=== PATIENT | female | born 1965 | race Caucasian/White ===

== ENCOUNTER 2024-08-20 11:17 | Outpatient (AMB) | payer SELFPAY ==
--- NOTE | 2024-08-20 11:27 | MHC.PC.OV ---
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 Accompanied by: Self / Same As Patient Allergies antidepressant Allergy (Mild, Uncoded 08/20/24 12:11) muscle regenity Medication List - Last Reconciled 08/20/24 by Kayleigh Tee PA-C cholecalciferol (vitamin D3) 25 mcg PO DAILY gabapentin mg PO levothyroxine 112 mcg PO DAILY lorazepam 1 mg PO BID zolpidem 5 mg PO BEDTIME Tobacco use date assessed: 08/20/24 Dental Screening Dental Screen Date: 08/20/24 Did you have a dental visit in the last 12 months?: Yes Did you have a dental problem in the last 6 months where you did not have access to dental care?: No Was dental information given to patient?: Patient has dentist HPI follow up HPI Details The patient is a 58-year-old female presenting for a follow-up visit and continuation of care after her previous physician?s mcc. 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 Post-surgical complications also include anxiety and heart rate irregularities due to probable cranial nerve impact. 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 She continues maintenance for hypothyroidism and anxiety. Last MRI showed some regrowth of the tumor, and she follows yearly screenings for other health aspects. Social History - Employment/Functional Status: Previously busy work schedule, now on disability. - Clinic Visits: Attends annual and as-needed medical appointments due to ongoing conditions. - Pharmacy: Uses a pharmacy in [place], more recently, the patient mentioned [facility]. - Nutrition and Weight: Engages in a nutrition plan resulting in significant weight loss from approximately 240 lbs to 173 lbs since surgery. The BMI reported was previously at 31. [facility] Medical History (Updated 08/20/24 @ 13:22 by Kayleigh Tee PA-C) Overweight with body mass index (BMI) of 28 to 28.9 in adult Pure hypercholesterolemia, unspecified Encounter for colorectal cancer screening using Cologuard test History of mammogram (~11/10/19) Varicose vein of leg Anxiety Vestibular schwannoma Fibromyalgia Eaton syndrome Tachyarrhythmia Sjogren syndrome Hypothyroidism Bishop's thyroiditis Gastritis Establishing care with new doctor, encounter for Juvenile rheumatoid arthritis Surgical History H/O wisdom tooth extraction Hx of tonsillectomy Family History Father Leukemia BP (high blood pressure) Mother Lung cancer BP (high blood pressure) Glaucoma Social History Housing: Apartment Alcohol intake: current Alcohol intake frequency: does not drink Patient Tobacco Use Status: Never used Tobacco service: No Current occupational status: disabled Cognitive needs: No Hearing needs: No Vision needs: Yes (rx glasses) Questionnaire PHQ-9 Over the last 2 weeks, how often have you been bothered by any of the following problems? 1. Little interest or pleasure in doing things: not at all 2. Feeling down, depressed, or hopeless: not at all 3. Trouble falling or staying asleep, or sleeping too much: not at all 4. Feeling tired or having little energy: not at all 5. Poor appetite or overeating: not at all 6. Feeling bad about yourself - or that you are a failure or have let yourself or your family down: not at all 7. Trouble concentrating on things, such as reading the newspaper or watching television: not at all 8. Moving or speaking so slowly that other people could have noticed. Or the opposite - being so fidgety or restless that you have been moving around a lot more than usual: not at all 9. Thoughts that you would be better off or of hurting yourself in some way: not at all Total score: 0 Depression Screening Interpretation: Negative Depression Screening Done: Yes 35943 - PHQ-9 Billing: Yes Source: Developed by Drs. Jaret Samayoa, Layla BojorquezSebastián and colleagues, with an educational montez from [employer]. Thrive Questionnaire Date Thrive assessed: 08/20/24 I am a: Patient What is your living situation today?: I have a steady place to live Within the past 12 months, did the food you bought not last and you didn't have the money to get more?: Never true Within the past 12 months, did you worry whether your food would run out before you got money to buy more?: Never true Do you have trouble paying for medicines?: No Do you have trouble getting transportation to medical appointments?: No Do you have trouble paying your heating and electricity bill?: No Do you have trouble taking care of your child, family member or friend?: No Do you have trouble with day-to-day activities such as bathing, preparing meals, shopping, managing finances, etc.?: No Are you currently unemployed and looking for a job?: No Are you interested in more education?: No Please select the resources that you would like help with: None THRIVE Score: 0 AUDIT C Alcohol Use Questionnaire (AUDIT-C) 1. How often do you have a drink containing alcohol?: Never 3. How often do you have six or more drinks on one occasion?: Never Total Score: 0 Score Reviewed/Action Taken: No BUBBA-7 AMB Questionnaire BUBBA-7 Date BUBBA - 7 assessed: 08/20/24 Feeling nervous, anxious, or on edge: 0 = Not at all Not being able to stop or control worryin = Not at all Worrying too much about different things: 0 = Not at all Trouble relaxin = Not at all Being so restless that it is hard to sit still: 0 = Not at all Becoming easily annoyed or irritable: 0 = Not at all Feeling afraid as if something awful might happen: 0 = Not at all Total BUBBA-7 score (0-4 normal; 5-9 mild; 10-14 moderate; 15-21 severe): 0 Source: Developed by Drs. Jaret Samayoa, Layla Bojorquez, Sebastián Figueroa and colleagues, with an educational montez from [employer]. BUBBA-7 Assessment Billing BUBBA-7 Assessment Tool: BUBBA-7 Assessment 32919 Review of Systems Const Details: - ENT: Reports single-sided deafness, imbalance, constant tinnitus 23/10, previous ear pressure. - Cardiovascular: Reports anxiety, tachycardia; denies chest pain, leg swelling. - Gastrointestinal: Reports diarrhea; denies vomiting, bloody stool. - Musculoskeletal: Denies acute pain or swelling. - Neurological: Reports difficulty with speech and executive functions, nystagmus, sudden head buzzes, head pressure. - Psychological: Reports anxiety, mostly nocturnal. - General: Reports feeling warm lately but denies fever, cough, or congestion. Physical exam (Primary Care) Vital Signs: Last Vital Signs Temp 97.8 F 08/20/24 11:46 Pulse 86 08/20/24 11:46 Resp 14 08/20/24 11:46 BP 142/79 H 08/20/24 11:46 Pulse Ox 99 08/20/24 11:46 Oxygen Delivery Method Room Air 08/20/24 11:46 Care Plan Goal for BP management: <140/90 at Goal BMI result Body Mass Index 28.8 BMI Assessment/Plan discussion: High BMI High, discussed plan: lifestyle, weight reduction, dietary, physical activity and alcohol moderation Tobacco/Smoking Status: Tobacco use Status Tobacco use date assessed 08/20/24 08/20/24 11:30 Patient Tobacco Use Status Never used Tobacco 08/20/24 11:30 PHQ-9: PHQ-9 Score PHQ-9: Total score 0 08/20/24 12:13 Depression Screening Interpretation: Negative Thrive Assessment: Date of Thrive Assessment Date Thrive assessed 08/20/24 08/20/24 11:30 Const Other: Appearance: Alert. Oriented X3. No acute distress. Head: Normal external exam. Normocephalic. Atraumatic. Eyes: Pupils are equal, round, and reactive to light. Extraocular movements intact. Conjunctiva and sclera normal. Eyelids normal. Ears: External auditory canal normal. Tympanic membranes normal on the right side. Left inner ear removed during surgery, resulting in single-sided deafness. Throat: Pharynx normal. Uvula midline. Moist mucous membranes. Neck: Normal inspection. Neck supple. Full range of motion. No adenopathy. Thyroid Normal. No meningeal signs. No neck mass noted. Cardiovascular: Normal heart rate and rhythm. Heart sound normal. No murmurs noted. Pulses normal throughout. Respiratory: No respiratory distress. Painless inspiration. Breath sounds normal. No wheezes/rales/rhonchi noted. Chest nontender. No accessory muscle usage noted or decreased air movement noted. Abdomen: Soft and nontender. Bowel sounds normal in all 4 quadrants. No distention noted. No organomegaly noted. No visible injury noted. Back: No costovertebral angle tenderness. Full range of motion noted. Skin: Skin warm and dry. Normal skin color. Normal skin turgor. No rashes/lesions/lacerations noted. Extremities: No lower extremity edema. Extremities exhibit normal range of motion. Extremities nontender. Neuro: Oriented X 3. No motor deficit. No sensory deficit. Reflexes normal. Noted imbalance and nystagmus. Results Reviewed Results Reviewed: - Tests and Diagnostics: MRI in August showed slight tumor regrowth. - Labs: Recent blood work from [place] includes thyroid panel, CBC, CMP, A1c at 5.3, all unremarkable per patient report. 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 Varicose vein of leg I83.90 Pure hypercholesterolemia, unspecified E78.00 Overweight with body mass index (BMI) of 28 to 28.9 in adult E66.3; Z68.28 Additional Codes BUBBA-7 Assessment Billing - BUBBA-7 Assessment Tool: BUBBA-7 Assessment 28693 ([id number]) PHQ-9 - 48058 - PHQ-9 Billing: Yes ([id number]) Assessment & Plan Assessment & Plan (1) Establishing care with new doctor, encounter for: Code(s): Z76.89 - Persons encountering health services in other specified circumstances Category: Medical (2) Juvenile rheumatoid arthritis: Code(s): M08.00 - Unspecified juvenile rheumatoid arthritis of unspecified site Category: Medical Plan: Maintain current therapeutic strategies aimed at disease control with regular rheumatology consultations to reassess medication efficacy and joint health. Consider physiotherapy or additional interventions should joint symptoms exacerbate. Condition is chronic and stable continue to monitor. (3) Bishop's thyroiditis: Code(s): E06.3 - Autoimmune thyroiditis Category: Medical Plan: Continued management with levothyroxine dosage maintained as per thyroid function tests. Evaluate at regular intervals with TSH, T3, and T4 assessments to ensure controlled thyroid status. Condition is chronic and stable will continue to monitor. (4) Tachyarrhythmia: Code(s): R00.0 - Tachycardia, unspecified Category: Medical Plan: Addressing through behavioral and pharmacological management in coordination with anxiety treatment. Monitor cardiovascular status, potentially requiring venereal disease investigator consultation should symptoms progress. Condition is chronic and stable continue to monitor. (5) Sjogren syndrome: Code(s): M35.00 - Sjogren syndrome, unspecified Category: Medical Plan: Condition is chronic and stable continue to monitor. (6) Hypothyroidism: Code(s): E03.9 - Hypothyroidism, unspecified Category: Medical Plan: Continued management with levothyroxine dosage maintained as per thyroid function tests. Evaluate at regular intervals with TSH, T3, and T4 assessments to ensure controlled thyroid status. Condition is chronic and stable will continue to monitor. (7) Vestibular schwannoma: Comment: Left side is status post resection in 2020 with residual permanent symptoms from surgery and tumor damage over the years which include single sided deafness left inner ear removed during surgery Imbalance Constant strong tinnitus 24/ Anxiety Bee hives sensation Hyperacusis Getting out thoughts to speech Executive thinking Nystagmus Swallowing issues Sudden pauses Head pressure/left ear pressure Driving can make symptoms worse Code(s): D33.3 - Benign neoplasm of cranial nerves Category: Medical Plan: Ongoing surveillance via annual MRI; last imaging in September 2023 showed slight regrowth. Continued ENT consultation recommended, with management focused on symptom alleviation, including balance therapy, hearing assessments, and addressing tinnitus impact. Reassess medical therapy as needed to align management of neuroma-related symptoms. (8) Anxiety: Code(s): F41.9 - Anxiety disorder, unspecified Category: Medical Plan: Anxiety managed with a regimen including Ativan for situational relief and Zolpidem at bedtime for sleep disturbances. Discussed continued use and monitoring of current medication and potential titration if symptoms intensify. Re-evaluate need for psychiatric referral if current management is insufficient. Condition is chronic and stable continue to monitor. (9) Fibromyalgia: Code(s): M79.7 - Fibromyalgia Category: Medical Plan: Continued annual MRI examinations to monitor any changes in the tumor. Address symptoms with supportive therapies such as balance therapy and hearing assessments. Condition is chronic and stable will continue to monitor. 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 Consider referral to rheumatology if condition worsens. Condition is chronic and stable continue to monitor. (11) Varicose vein of leg: Comment: Status post ablation bilaterally Code(s): I83.90 - Asymptomatic varicose veins of unspecified lower extremity Category: Medical Plan: Condition is chronic and stable will continue to monitor. (12) Pure hypercholesterolemia, unspecified: Code(s): E78.00 - Pure hypercholesterolemia, unspecified Category: Medical Plan: Management includes continued lifestyle and dietary adjustments, with regular lipid monitoring to assess cholesterol management efficacy. Discuss lipid-lowering therapy continuation or adjustment per future lab results. Condition is chronic and stable will continue to monitor. (13) Overweight with body mass index (BMI) of 28 to 28.9 in adult: Code(s): E66.3 - Overweight; Z68.28 - Body mass index [BMI] 28.0-28.9, adult Category: Medical Plan: Patient to improve diet and exercise regimen. Condition is chronic and stable continue to monitor. Plan Plan Patient was informed and verbally consented to the use of an ambient scribe for clinic note documentation during this visit. 1. Acoustic Neuroma Vestibular Schwannoma Ongoing surveillance via annual MRI; last imaging in September 2023 showed slight regrowth. Continued ENT consultation recommended, with management focused on symptom alleviation, including balance therapy, hearing assessments, and addressing tinnitus impact. Reassess medical therapy as needed to align management of neuroma-related symptoms. 2. Anxiety Disorder Anxiety managed with a regimen including Ativan for situational relief and Zolpidem at bedtime for sleep disturbances. Discussed continued use and monitoring of current medication and potential titration if symptoms intensify. Re-evaluate need for psychiatric referral if current management is insufficient. 3. Hypercholesterolemia Management includes continued lifestyle and dietary adjustments, with regular lipid monitoring to assess cholesterol management efficacy. Discuss lipid-lowering therapy continuation or adjustment per future lab results. 4. Bishop?s Thyroiditis Continued management with levothyroxine dosage maintained as per thyroid function tests. Evaluate at regular intervals with TSH, T3, and T4 assessments to ensure controlled thyroid status. 5. Rheumatoid Arthritis Maintain current therapeutic strategies aimed at disease control with regular rheumatology consultations to reassess medication efficacy and joint health. Consider physiotherapy or additional interventions should joint symptoms exacerbate. 6. Tachycardia Arrhythmia Syndrome Addressing through behavioral and pharmacological management in coordination with anxiety treatment. Monitor cardiovascular status, potentially requiring venereal disease investigator consultation should symptoms progress. 7. Raynaud's Phenomenon Symptomatic management with pharmacological and lifestyle adjustments; avoid cold exposure and stressors. Consider referral to rheumatology if condition worsens. 8. Fibromyalgia Continued annual MRI examinations to monitor any changes in the tumor. Address symptoms with supportive therapies such as balance therapy and hearing assessments. During the visit, we discussed the management and surveillance of her vestibular schwannoma post-resection, especially given the noted regrowth in the last MRI. Emphasis was placed on maintaining consistent imaging follow-ups to evaluate tumor status annually. Anxiety was addressed with a review of her current medications, intending to manage her symptoms better, particularly at night. The necessity of maintaining lipid control through dietary adherence and monitoring was also discussed. I advised ongoing evaluation of her thyroid, rheumatoid arthritis, and other comorbid conditions as part of her overall health management. The patient was informed about the importance of regular rheumatology follow-ups and the need for adjustments in treatment strategy if symptoms of fibromyalgia or Raynaud's phenomenon become more pronounced. An order for annual thyroid function tests was suggested to ensure effective management of Bishop?s. We also reviewed her colitis, chronic pain disorders, and prescribed medications like Ativan and Zolpidem for sleep issues, noting the impact on daily functioning and advised continuing the existing treatment regimens unless worsening is observed. Medications: New lorazepam 1 mg PO BID 60 tabs 0RF Refilled zolpidem 5 mg PO BEDTIME 90 tabs 1RF zolpidem 5 mg PO BEDTIME 30 tabs 1RF Patient Instructions: - Ensure participation in regular MRI follow-ups to monitor changes in acoustic neuroma. - Maintain current medication regimen as it pertains to anxiety management and thyroid health. - Monitor dietary intake to support cholesterol management. - Regularly engage in balance therapy exercises as advised to improve stability. - Continue to adhere to any scheduled health maintenance visits and share test results with the [place] care team. - Avoid cold exposure that may trigger Raynaud's Phenomenon symptoms. - Report any significant changes in health or if current management becomes insufficient.
[2024-08-20 11:46] VITALS: BP 139/72; PULSE 86; RESP 14; TEMP 36.6; O2SAT 99; BMI 28.8
--- OUTSIDE RECORDS SUMMARY | 2024-08-20 12:34 | XMS_ITS | Clinical Summary ---
Author Organization [facility] Address [address] [place] [address] Phone Care Team Providers Care Robotype Operator Name Role Phone Requested, Attending Provider Primary Care Provi franco Compa Connor MD Unavailable [phone] Allergies No known active allergies Medications * Be aware that medications may not be up to date as of this document. ALWAYS verify current medications with the patient. Medication Sig Dispensed Refills Start Date End Date Status hydroxychloroquine (PLAQUENIL) 200 MG tablet Take by mouth daily 0 Active meloxicam (MOBIC) 7.5 MG tablet Take 15 mg by mouth daily 0 Active levothyroxine (LEVOXYL) 112 MCG tablet Take 112 mcg by mouth daily 0 Active atenolol (TENORMIN) 25 MG tablet Take 25 mg by mouth daily 0 Active HYDROcodone-acetaminop hen (NORCO) 5-325 MG per tablet Take 1 tablet by mouth as needed for pain 0 Active acetaminophen (TYLENOL) 325 MG tablet Take 650 mg by mouth 0 11/22/2019 Active amLODIPine (NORVASC) 5 MG tablet Take 5 mg by mouth 0 11/23/2019 Active zolpidem (AMBIEN) 5 MG tablet Take 5 mg by mouth nightly as needed for sleep 0 Active Family History Medical History Relation Name Comments Leukemia Father Lung cancer Mother Healthy, No Significant History Sister 1 Healthy, No Significant History Sister 2 Fibromyalgia Sister 3 Hypothyroidism Sister 3 Relation Name Status Comments Father Mother Sister 1 Sister 2 Sister 3 Alive Social History Tobacco Use Types Packs/Day Years Used Date Smoking Tobacco: Never Smokeless Tobacco: Never Alcohol Use Standard Drinks/Week Comments Yes 0 (1 standard drink = 0.6 oz pur e alcohol) rare Alcohol Habits Answer Date Recorded How often do you have a drink containing alcohol ? Monthly or less 04/16/2019 How many drinks containing a lcohol do you have on a typical day when you are drinking? 1 or 2 04/16/2019 How often do you have six or more drinks on one occasion? Never 04/16/2019 Sex Assigned at Date Recorded Not on file Last Filed Vital Signs Vital Sign Reading Time Taken Comments Blood Pressure 142/78 04/16/2019 2:24 PM EST Pulse 63 10/07/2015 8:53 AM EDT Temperature 37.2 ??C (98.9 ??F) 10/07/2015 8:53 AM ED T Respiratory Rate 14 10/07/2015 8:53 AM EDT Oxygen Saturation 100% 10/07/2015 8:53 AM EDT Inhaled Oxygen Concentration - - Weight 99.8 kg (220 lb) 04/16/2019 2:24 PM EST Height 165.1 cm (5' 5 ) 04/16/2019 2:24 PM EST Body Mass Index 36.61 04/16/2019 2:24 PM EST Plan of Treatment Health Maintenance Due Date Last Done Comments Colon Cancer Screening Colonoscopy 1965 Colon Cancer Screening Fecal DNA 1965 Colon Cancer Screening Fecal Occult Blood Test 1965 Colorectal Cancer Screening 1965 Sigmoidoscopy Every 5 Years 1965 COVID-19 Vaccine (#1) 03/30/1966 HIV Testing Offered (13-64 y/o) 1978 DTaP / TDap / Td (1 - Tdap) 1984 PAP SMEAR 1986 Mammogram 2005 Zoster Recombinant Vaccine ( RZV) (Shingrix) (1 of 2) 09/29/2015 PHQ Depression Screening 04/02/2024 Influenza Vaccine 10/31/2024 RSV Adult > 60+ Yrs (1 - 1-d ose 60+ series) 2025 Pneumococcal Vaccine Aged Out No long er eligible based on patient's age to complete this topic RSV Ped < 20 months Aged Out No longe r eligible based on patient's age to complete this topic Care Teams Robotype Operator Relationship Specialty Start Date End Date Requested, Attending Provider [address] [place] [address] PCP - General 10/07/15 Compa Connor MD Consulting Physician Otolaryngology 04/14/19
--- OUTSIDE RECORDS SUMMARY | 2024-08-20 12:34 | XMS_ITS | Clinical Summary ---
Author Organization [facility] Address [address] [place] [phone] Phone Care Team Providers Care Fitter Helper Name Role Phone Lety You Primary Care Provider Allergies Active Allergy Reactions Criticality Noted Date Comments Diphenhydramine Hcl 07/01/2024 Duloxetine 11/05/2019 Stiff muscles Serotonin 11/24/2019 Muscle rigidity Serotonin 5ht-3 Antagonists 11/05/19 20 Medications zolpidem (AMBIEN) 5 mg tablet Take 1 tablet (5 mg total) by mouth at bedtime as needed. Active gabapentin (NEURONTIN) 300 mg capsule 01/27/2023 Active LORazepam (ATIVAN) 1 mg tablet Take 1 tablet (1 mg total) by mouth 2 (two) times a day if needed. Active levothyroxine (SYNTHROID, LEVOTHROID) 112 mcg tablet Take 1 tablet (112 mcg total) by mouth 1 (one) time each day before breakfast. 90 each 06/11/2024 5 Active Active Problems Problem Noted Date Diagnosed Date Tubular adenoma of colon 07/01/2024 Overview (07/01/2024): Ascending colon/2023 Benign neoplasm of cranial n erves ([facility]/HCC V24, [facility]/HCC V28) 11/24/2019 Dysphagia, oropharyngeal phase 11/24/2019 Other abnormalities of gait and mobility 020 Other symptoms and signs inv olving cognitive functions and awareness 11/24/2019 GERD (gastroesophageal reflux disease) 0 Overview (03/06/2023): Last Assessment & Plan: Avoid late, large, spicy meals. Keep headboard elevated at 45?? angle for nighttime. Juvenile rheumatoid arthritis ([facility] V24, [facility] V28) 11/05/2019 Overview (03/06/2023): Last Assessment & Plan: Continue Plaquenil 200 mg twice daily along with diclofenac 75 mg daily with food as needed. Joint protection, energy conservation. Gentle, regular exercise routine. Avoid sick contacts, injuries and overuse. Get monitoring labs at least every 3 months as requested. Assessment & Plan (12/19/2023 4:47 PM EDT): STABLE AND DOING WELL. NO CONCERNS TODAY Sees rheum. Lab workup ordered Orders: C-reactive protein; Future Vitamin B12; Future Sedimentation rate; Future C-reactive protein Vitamin B12 Sedimentation rate Vestibular schwannoma ([facility] V24, [facility] V28) 06/09/2019 Overview (03/06/2023): Last Assessment & Plan: Continue exercises as educated by PT and OT after translabyrinthine excision with abdominal fat grafting of large vestibular schwannoma with brainstem compression in November 2019 . Fibromyalgia 10/26/2017 Overview (03/06/2023): Last Assessment & Plan: Balance rest and activity. Sleep hygiene. Optimize stress management strategies. Regular exercise routine such as gentle yoga, Pilates, brady chi, water aerobics, walking, biking etc. She would benefit from reading book written by Dr Carl Ernandez Full catastrophe living addressing management strategies for patients with fibromyalgia utilizing mindfulness approach. Osteoarthritis of multiple joints 10/26/2017 Overview (03/06/2023): Last Assessment & Plan: Joint protection, energy conservation. Gentle, regular exercise routine. Avoid falls, injuries, overuse. Keep body weight in ideal range for her height. She may benefit from topical cream such as Arnica, Biofreeze, Aspercreme versus medicated patches such as salonpas, icy hot patch 2-3 times daily and if necessary at bedtime x 3 weeks. Examples of knee exercises with pictures and detailed instructions printed today for home use. If not better or worse may need to consider formal PT versus local steroid injection. Last Assessment & Plan: Joint protection, energy conservation. Gentle, regular exercise routine. Avoid falls, injuries, overuse. Keep body weight in ideal range for her height. She may benefit from topical cream such as Arnica, Biofreeze, Aspercreme versus medicated patches such as salonpas, icy hot patch 2-3 times daily and if necessary at bedtime x 3 weeks. Examples of knee exercises with pictures and detailed instructions printed today for home use. If not better or worse may need to consider formal PT versus local steroid injection. Sjogren's syndrome with melly toconjunctivitis sicca ([facility] V24) 10/26/2017 Overview (03/06/2023): Last Assessment & Plan: Continue proper hydration, well-balanced nutritionally diet, sleep hygiene. Avoid sick contacts, falls or injuries. Follow social distancing, diligent hand hygiene and wearing facial mask whenever leaving her house. Call with questions or problems otherwise return in September 2023 per her request. Assessment & Plan (12/19/2023 4:47 PM EDT): UTD with rheum Vitamin D insufficiency 09/10/2017 Overview (03/06/2023): Last Assessment & Plan: Double the daily dose of vitamin D from 2000 units to 4000 units until the end of June 2023. 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 NO CONCERNS TODAY Extensive lab workup ordered per patient request Orders: Thyroid peroxidase antibody; Future Thyroid stimulating hormone; Future Triiodothyronine free; Future Thyroxine free; Future Thyroglobulin antibody; Future Thyroid peroxidase antibody Thyroid stimulating hormone Triiodothyronine free Thyroxine free Thyroglobulin antibody Resolved Problems Problem Noted Date Diagnosed Date Resolved Date Atypical squamous cells of u ndetermined significance (ASCUS) on Papanicolaou smear of cervix 12/19/2023 07/01/2024 Muscle weakness (generalized) 12/04/2019 07/01/2024 Autoimmune thyroiditis 11/24/201903/06 Major depressive disorder, s ashish episode, unspecified 11/24/2019 12/19/2023 Morbid (severe) obesity due to excess calories ([facility] V24, [facility] V28) 11/24/201912/01 Other specified hypothyroidism 11/24/2019 03/06/2023 Unspecified asthma, uncomplicated 11/24/2019 07/01/2024 Depression 11/05/2019 12/19/2023 Snoring 11/05/2019 07/01/2024 Mouth sores 10/26/2017 12/19/2023 Abnormal weight gain 09/07/2017 023 Encounters Date Type Department Care Team Description 07/01/2024 11:30 AM EDT Office Visit [facility] [address] [place] [address] Lety You PA 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 (Primary Dx); Elevated C-reactive protein (CRP); IFG (impaired fasting glucose); Tubular adenoma of colon; Juvenile rheumatoid arthritis ([facility] V24, [facility] V28); Aphasia; Swelling, mass, or lump on face from Last 3 Months Immunizations Name Administration Dates Next Due Influenza Quadravalent, MDCK , 0.5ml, preservative free (Flucelvax) 6mo and older 01/09/2022,01/28/2020,01/11/2019 Influenza Quadrivalent, 0.5m l, preservative free (Fluarix; FluLaval; Fluzone) ages 6mo and older (Afluria) 3yo and older 12/21/2022,01/20/2021 Influenza Quadrivalent, with preservative (Fluzone; Afluria) 6mo and older 02/07/2018 Influenza trivalent, 0.5mL, preservative free (Fluarix; FluLaval; Fluzone) ages 6mo and older (Afluria) 3 years and older 01/09/2017 Influenza, Unspecified 01/09/2023 Pneumococcal conjugate 13 va lent (Prevnar 13, PCV13) 2mo and older 11/22/2019 Pneumococcal polysaccharide 23 valent (Pneumovax 23) 2yo and older 10/11/2020 Surgical History Surgery Date Site/Laterality Comments TONSILLECTOMY OTHER SURGICAL HISTORY 04/02/2019 - 04/01/2020 Vestibular schwannoma removal in [place] BRAIN SURGERY 11/20/2019 Medical History Medical History Date Comments Disease of thyroid gland Arthritis RA (rheumatoid arthritis) ([facility] V24, [facility] V28) Allergic GERD (gastroesophageal reflux disease) HL (hearing loss) 2018 Hypertension Sjogren syndrome ([facility] V24) Family History Medical History Relation Name Comments Arthritis Father B Asthma Father B Cancer Father B Hypertension Father B Leukemia Father B Hypertension Maternal Grandfather R Stroke Maternal Grandfather R Arthritis Maternal Grandmother V Arthritis Mother N Cancer Mother N Hypertension Mother N Lung cancer Mother N Arthritis Paternal Grandfather E Diabetes Paternal Grandfather E Hypertension Paternal Grandfather E Cancer Paternal Grandmother E Hypertension Paternal Grandmother E Hypertension Sister 1 J No Known Problems Sister 2 Fibromyalgia Sister 3 Hypothyroidism Sister 3 Relation Name Status Comments Father B Maternal Grandfather R Maternal Grandmother V Mother N Paternal Grandfather E Paternal Grandmother E Sister 1 J Sister 2 Sister 3 Alive Social History Tobacco Use Types Packs/Day Years Used Date Smoking Tobacco: Never Smokeless Tobacco: Never Tobacco Cessation:Counseling Given: Not Answered Alcohol Use Standard Drinks/Week Comments Not Currently 0 (1 standard drink = 0.6 oz pur e alcohol) Housing Instability Answer Date Recorde d Are you worried that in the next 2 months you may not have stable housing? Patient declined 07/01/2024 Food Access & Nutrition Answer Date Rec orded Do you have access to a vari ety of food including fruits and vegetables? Patient declined 07/01/2024 Financial Risk Answer Date Recorded How hard is it for you to pa y for the very basics like food, housing, medical care, and air conditioning / heating? Patient declined 07/01/2024 Transportation Answer Date Recorded Has the lack of transportati on kept you from meetings, work, or from getting things needed for daily living? Patient declined 07/01/2024 Has the lack of transportati on kept you from medical appointments or from getting medications? Patient declined 07/01/2024 Social Isolation Answer Date Recorded How often do you feel lonely or isolated from those around you? Patient declined 07/01/2024 Food Risk Answer Date Recorded Within the past 12 months we worried whether our food would run out before we got money to buy more. Patient declined 025 Within the past 12 months th e food we bought just didn't last and we didn't have money to get more. Patient declined 04/2024 [facility] Answer Date Re corded How often do you need to hav e someone help you when you read instructions, pamphlets, or other written material from your doctor or pharmacy? Patient declined 07/01/2024 Caregiver: How often do you need to have someone help you when you read instructions, pamphlets, or other written material from your doctor or pharmacy? Not on file 025 Interpersonal Safety Answer Date Record ed Physical Abuse 01/10/2024 Verbal Abuse 01/10/2024 Comments No Sex and Gender Information Value Date Recorded Sex Assigned at Female 01/10/2024 6:46 AM EDT Legal Sex Female 2:50 AM EST Gender Identity Female 01/10/2024 6:46 AM EDT Sexual Orientation Straight 01/10/2024 6: 46 AM EDT Obstetrics History Last Filed Vital Signs Vital Sign Reading Time Taken Comments Blood Pressure 132/88 07/01/2024 11:24 AM EDT Pulse 76 07/01/2024 11:24 AM EDT Temperature 36.4 ??C (97.5 ??F) 07/01/2024 11:24 AM E DT Respiratory Rate 18 07/01/2024 11:24 AM EDT Oxygen Saturation 99% 07/01/2024 11:24 AM EDT Inhaled Oxygen Concentration - - Weight 77.4 kg (170 lb 9.6 oz) 07/01/2024 11:24 AM EDT Height 162.6 cm (5' 4 ) 07/01/2024 11:24 AM EDT Body Mass Index 29.28 07/01/2024 11:24 AM EDT Plan of Treatment Upcoming Encounters Date Type Department Care Team (Late st Contact Info) Description 02/02/2025 8:30 AM EST Office Visit [facility] [place] [address] [place] [phone] Lety You PA [address] [place] [address] [place], [place] [id number] Health Maintenance Due Date Last Done Comments DTaP,Tdap,and Td Vaccines (1 - Tdap) 1984 Zoster Vaccines (1 of 2) 09/29/2015 Influenza Vaccine (Season Ended) 2024 01/09/2023, 12/21/2022, 01/09/2022, Additional history exists Cervical Cancer Screening: Pap Smear 03/06/2025 03/06/2022 Breast Cancer Screening 04/17/2025 04/17/2023 Depression Screening 07/01/2025 07/01/2024, 03/06/20 23 Pneumococcal Vaccine: 50+ Years (3 of 3 - PCV20 or PCV21) 10/11/2025 10/11/2020, 11/22/2019 Pneumococcal Vaccine: Pediatrics (0 to 5 Years) and At-Risk Patients (6 to 64 Years) (3 of 3 - PCV20 or PCV21) 10/11/2025 10/11/2020, 11/22/2019 Cholesterol Screening (Lipid Panel) 12/21/2028 12/22/2023, 03/10/2023 Colorectal Cancer Screening: Colonoscopy 01/09/2029 01/10/2024 Colorectal Cancer Screening: FIT-DNA (Cologuard) Discontinued 02/02/2019, 02/02/2019 COVID-19 Vaccine Discontinued 02/05/2021, 01/2021, 06/20/2020 Social Influencers of Health Screening Discontinued 07/01/2024 HIB Vaccines Aged Out No longer eligi ble based on patient's age to complete this topic HIV Screening Discontinued HPV Vaccines Aged Out No longer eligi ble based on patient's age to complete this topic Hepatitis A Vaccines Aged Out No long er eligible based on patient's age to complete this topic Hepatitis B Vaccines Discontinued Hepatitis C Screening Discontinued IPV Vaccines Aged Out No longer eligi ble based on patient's age to complete this topic MMR Vaccines Aged Out No longer eligi ble based on patient's age to complete this topic Meningococcal ACWY Vaccine Aged Out N o longer eligible based on patient's age to complete this topic Meningococcal B Vaccine Aged Out No l onger eligible based on patient's age to complete this topic RSV Immunization Patients Under 20 months Aged Out No longer eligible based on patient's age to complete this topic Varicella Vaccines Aged Out No longer eligible based on patient's age to complete this topic Medical Devices Implanted Type Area Carpet Cleaning Technician Device Identifier Shelf Expiration Date Model / Serial / Lot Screws N/A: Brain Plate N/A: Brain Procedures Procedure Name Priority Date/Time Associated Diagnosis Comments THYROGLOBULIN ANTIBODY Routine 7:12 AM EDT THYROID PEROXIDASE ANTIBODY Routine 07/19/2024 7:12 AM EDT CBC WITH AUTO DIFFERENTIAL Routine 07/19/2024 7:12 AM EDT 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 TRIIODOTHYRONINE FREE Routine 07/19/2024 7:12 AM EDT 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 THYROXINE FREE Routine 07/19/2024 7:12 AM EDT 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 THYROID STIMULATING HORMONE Routine 07/19/2024 7:12 AM EDT 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 COMPREHENSIVE METABOLIC PANEL Routine 07/19/2024 7:12 AM EDT 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 CBC AND DIFFERENTIAL Routine 07/19/2024 7:12 AM EDT 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 HEMOGLOBIN A1C Routine 07/19/2024 7:12 AM EDT IFG (impaired fasting glucose) INSULIN AND C-PEPTIDE Routine 07/19/2024 7:12 AM EDT IFG (impaired fasting glucose) C-REACTIVE PROTEIN Routine 07/19/2024 7: 12 AM EDT Elevated C-reactive protein (CRP) COLONOSCOPY Routine 01/10/2024 8:36 AM EDT Epigastric pain Abnormal weight loss LIPID PANEL WITH REFLEX TO LIPOPROTEIN NMR Routine 12/22/2023 7:29 AM EDT Family history of heart disease from Last 3 Months or Most Recently Relevant to Health Maintenance Results * Insulin and c-peptide (07/19/2024 7:12 AM EDT) Pathologist [facility] Insulin 5.5 2.6 - 24.9 uIU/mL [facility] C-Peptide Serum 1.7 1.1 - 4.4 ng/mL [facility] Comment:C-Peptide reference interval is for fasting patients. Blood Venous blood specimen / Unknown 07/19/2024 7:12 AM EDT 07/19/2024 Narrative [facility] - 07/20/2024 8:06 AM EDT Performed at: ??01 - [facility] [address] ??[id number] Guide Foreign Tour: Yoly Villeda MD, Phone: ??[phone] us Lety GOINS LAB BLOOD ORDERABLES Fi nal Result [facility] * CBC auto differential (07/19/2024 7:12 AM EDT) Pathologist [facility] WBC 5.2 3.4 - 10.8 x10E3/uL [facility] RBC 4.77 3.77 - 5.28 x10E6/uL [facility] Hemoglobin 14.2 11.1 - 15.9 g/dL [facility] Hematocrit 42.7 34.0 - 46.6 % [facility] 1 MCV 90 79 - 97 fL [facility] MCH 29.8 26.6 - 33.0 pg [facility] 1 MCHC 33.3 31.5 - 35.7 g/dL [facility] RDW 13.5 11.7 - 15.4 % [facility] 1 Platelets 256 150 - 450 x10E3/uL [facility] 1 Neutrophils 52 Not Estab. % [facility] Lymphocytes 34 Not Estab. % [facility] Monocytes 9 Not Estab. % [facility] Eosinophils 3 Not Estab. % [facility] Basophils 2 Not Estab. % [facility] Neutrophils Absolute 2.7 1.4 - 7.0 x10E3/uL [facility] Lymphocytes Absolute 1.8 0.7 - 3.1 x10E3/uL [facility] Monocytes Absolute 0.5 0.1 - 0.9 x10E3/uL [facility] 1 Eosinophils Absolute 0.1 0.0 - 0.4 x10E3/uL [facility] Basophils Absolute 0.1 0.0 - 0.2 x10E3/uL [facility] Immature Granulocytes Relative 0 Not Estab. % [facility] 1 Immature Grans (Abs) 0.0 0.0 - 0.1 x10E3/uL [facility] 1 Blood Venous blood specimen / Unknown 07/19/2024 7:12 AM EDT 07/19/2024 Narrative [facility] - 07/20/2024 8:06 AM EDT Performed at: ??01 - [facility] [address] ??[id number] Guide Foreign Tour: Yoly Villdea MD, Phone: ??[phone] us Lety GOINS LAB BLOOD ORDERABLES Fi nal Result [facility] * Thyroid peroxidase antibody (07/19/2024 7:12 AM EDT) Pathologist [facility] Thyroid Peroxidase (TPO) Ab 12 0 - 34 IU/mL [facility] 1 07/19/2024 7:12 AM EDT 07/19/2024 Narrative [facility] - 07/20/2024 8:06 AM EDT Performed at: ??01 - [facility] [address] ??[id number] Guide Foreign Tour: Yoly Villeda MD, Phone: ??[phone] Lety GOINS LAB BLOOD ORDERABLES Fi nal Result Performing Organization Address [facility] de Phone Number [facility] * Thyroglobulin antibody (07/19/2024 7:12 AM EDT) Thyroglobulin Antibody <1.0 0.0 - 0.9 IU/mL [facility] Comment: Thyroglobulin Antibody measured by Letitia Maria Victoria Methodology It should be noted that the presence of thyroglobulin antibodies may not be pathogenic nor diagnostic, especially at very low levels. The assay supply teacher has found that four percent of individuals without evidence of thyroid disease or autoimmunity will have positive TgAb levels up to 4 IU/mL. 07/19/2024 7:12 AM EDT 07/19/2024 Narrative [facility] 1 - 07/22/2024 9:07 AM EDT Performed at: ??01 - [facility] [address] ??[id number] Guide Foreign Tour: Yoly Villeda MD, Phone: ??[phone] Result [facility] Lety GOINS LAB BLOOD ORDERABLES Fi nal Result Performing Organization Address [facility] de Phone Number [facility] * C-reactive protein (07/19/2024 7:12 AM EDT) Pathologist [facility] C-Reactive Protein, Quant 9 0 - 10 mg/L [facility] Blood Venous blood specimen / Unknown 07/19/2024 7:12 AM EDT 07/19/2024 Narrative [facility] - 07/20/2024 7:06 AM EDT Performed at: ??01 - [facility] [address] ??[id number] Guide Foreign Tour: Yoly Villeda MD, Phone: ??[phone] Lety GOINS LAB BLOOD ORDERABLES Fi nal Result [facility] * Triiodothyronine free (07/19/2024 7:12 AM EDT) Triiodothyronine (T3), Free 2.4 2.0 - 4.4 pg/mL [facility] Blood Venous blood specimen / Unknown 07/19/2024 7:12 AM EDT 07/19/2024 Narrative [facility] 1 - 07/20/2024 8:06 AM EDT Performed at: ??01 - [facility] ??[id number] Guide Foreign Tour: Yoly Villeda MD, Phone: ??[phone] us Lety GOINS LAB BLOOD ORDERABLES Fi nal Result Performing Organization Address [facility] Co de Phone Number [facility] * Thyroid stimulating hormone (07/19/2024 7:12 AM EDT) TSH 2.250 0.450 - 4.500 uIU/mL [facility] 1 Blood Venous blood specimen / Unknown 07/19/2024 7:12 AM EDT 07/19/2024 Narrative [facility] 1 - 07/20/2024 7:06 AM EDT Performed at: ??01 - [facility] ??[id number] Guide Foreign Tour: Yoly Villeda MD, Phone: ??[phone] us Lety GOINS LAB BLOOD ORDERABLES Fi nal Result [facility] * Thyroxine free (07/19/2024 7:12 AM EDT) T4 (Thyroxine) Free (Direct) 1.58 0.82 - 1.77 ng/dL [facility] 1 Blood Venous blood specimen / Unknown 07/19/2024 7:12 AM EDT 07/19/2024 Narrative [facility] 1 - 07/20/2024 8:06 AM EDT Performed at: ??01 - [facility] [address] ??[id number] Guide Foreign Tour: Yoly Villeda MD, Phone: ??[phone] us Lety GOINS LAB BLOOD ORDERABLES Fi nal Result Performing Organization Address City/[facility]/ZIP Co de Phone Number [facility] * Hemoglobin A1c (07/19/2024 7:12 AM EDT) Hemoglobin A1C 5.4 4.8 - 5.6 % [facility] Comment: ? Prediabetes: 5.7 - 6.4 ? Diabetes: >6.4 ? Glycemic control for adults with diabetes: <7.0 Blood Venous blood specimen / Unknown 07/19/2024 7:12 AM EDT 07/19/2024 Narrative [facility] 1 - 07/20/2024 6:37 AM EDT Performed at: ??01 - [facility] [address] ??[id number] Guide Foreign Tour: Yoly Villeda MD, Phone: ??[phone] us Lety GOINS LAB BLOOD ORDERABLES Fi nal Result Performing Organization Address City/[facility]/ZIP Co de Phone Number [facility] * Comprehensive metabolic panel (07/19/2024 7:12 AM EDT) Glucose 92 70 - 99 mg/dL [facility] Blood Urea Nitrogen (BUN) 20 6 - 24 mg/dL [facility] Creatinine 0.86 0.57 - 1.00 mg/dL [facility] 1 eGFR 78 >59 mL/min/1. 73 [facility] 1 BUN/Creatinine Ratio 23 9 - 23 [facility] 1 Sodium 137 134 - 144 mmol/L [facility] 1 Potassium 4.4 3.5 - 5.2 mmol/L [facility] 1 Chloride 99 96 - 106 mmol/L [facility] 1 Carbon Dioxide 26 20 - 29 mmol/L [facility] 1 Calcium 9.4 8.7 - 10.2 mg/dL [facility] Protein Total 7.5 6.0 - 8.5 g/dL [facility] 1 Albumin 4.6 3.8 - 4.9 g/dL [facility] 1 Globulin Total 2.9 1.5 - 4.5 g/dL [facility] 1 Bilirubin Total 0.6 0.0 - 1.2 mg/dL [facility] 1 Alkaline Phosphatase 89 44 - 121 IU/L [facility] 1 Aspartate aminotransferase??(A ST) 21 0 - 40 IU/L [facility] 1 Alanine Aminotransferase (ALT) 23 0 - 32 IU/L [facility] 1 Blood Venous blood specimen / Unknown 07/19/2024 7:12 AM EDT 07/19/2024 Narrative [facility] 1 - 07/20/2024 8:06 AM EDT Performed at: ??01 - [facility] [address] ??[id number] Guide Foreign Tour: Yoly Villeda MD, Phone: ??[phone] us Lety GOINS LAB BLOOD ORDERABLES Fi nal Result Performing Organization Address City/State/[facility] Co de Phone Number [facility] * COLONOSCOPY Anesthesia - MAC; SJSY ENDOSCOPY (01/10/2024 8:36 AM EDT) Anatomical Region Laterality Modality Other 01/10/2024 7:44 AM EDT Impressions 01/10/2024 8:37 AM EDT - The examined portion of the ileum was normal. ? - One diminutive polyp in the ascending colon, removed ? with a cold biopsy forceps. Resected and retrieved. ? - Internal hemorrhoids. Recommendation: ?- Repeat colonoscopy in 5-10 years for surveillance ? based on pathology results. Narrative 01/10/2024 8:37 AM EDT Patient Name: Sara Rogel Procedure Date: 01/10/2024 7:44 AM Date of : 1965 Age: 58 Procedure: ? Colonoscopy Indications: ? Weight loss Providers: ? Mike Henley MD Referring MD: ?Mike Henley MD Requesting Provider: ?? Medicines: ? Monitored Anesthesia Care Complications: ? No immediate complications. Procedure: ? After I obtained informed consent, the scope was ? passed under direct vision. Throughout the procedure, ? the patient's blood pressure, pulse, and oxygen ? saturations were monitored continuously. The ? Colonoscope was introduced through the anus and ? advanced to the terminal ileum. The colonoscopy was ? performed without difficulty. The patient tolerated ? the procedure well. The quality of the bowel ? preparation was excellent. Findings: ? The terminal ileum appeared normal. ? A diminutive polyp was found in the ascending colon. The polyp was ? removed with a cold biopsy forceps. Resection and retrieval were ? complete. ? Internal hemorrhoids were found during retroflexion. The hemorrhoids ? were small. Procedure Code(s): ? --- Professional --- ? 90277, Colonoscopy, flexible; with biopsy, single or ? multiple Diagnosis Code(s): ? --- Professional --- ? K64.8, Other hemorrhoids ? D12.2, Benign neoplasm of ascending colon ? R63.4, Abnormal weight loss CPT copyright 2022 [employer]. All rights reserved. The codes documented in this report are preliminary and upon blow machine tender starch spraying review may be revised to meet current compliance requirements. MD Mike Curry MD 01/10/2024 8:37:47 AM This report has been signed electronically. Number of Addenda: 0 Note Initiated On: 01/10/2024 7:44 AM Procedure Note Mike Henley MD - 01/10/2024 Patient Name: Sara Rogel Procedure Date: 01/10/2024 7:44 AM Date of : 1965 Age: 58 Procedure: Colonoscopy Indications: Weight loss Providers: Mike Henley MD Referring MD: Mike Henley MD Requesting Provider: Medicines: Monitored Anesthesia Care Complications: No immediate complications. Procedure: After I obtained informed consent, the scope was passed under direct vision. Throughout theprocedure, the patient's blood pressure, pulse, and oxygen saturations were monitored continuously. The Colonoscope was introduced through the anus and advanced to the terminal ileum. The colonoscopy was performed without difficulty. The patient tolerated the procedure well. The quality of the bowel preparation was excellent. Findings: The terminal ileum appeared normal. A diminutive polyp was found in the ascending colon. The polyp was removed with a cold biopsy forceps. Resection and retrieval were complete. Internal hemorrhoids were found during retroflexion. The hemorrhoids were small. Procedure Code(s): --- Professional --- 45398, Colonoscopy, flexible; with biopsy, singleor multiple Diagnosis Code(s): --- Professional --- K64.8, Other hemorrhoids D12.2, Benign neoplasm of ascending colon R63.4, Abnormal weight loss CPT copyright 2022 [place] [employer]. All rights reserved. The codes documented in this report are preliminary and upon blow machine tender starch spraying reviewmay be revised to meet current compliance requirements. MD Mike Curry MD 01/10/2024 8:37:47 AM This report has been signed electronically. Number of Addenda: 0 Note Initiated On: 01/10/2024 7:44 AM IMPRESSION: - The examined portion of the ileum was normal. - One diminutive polyp in the ascending colon,removed with a cold biopsy forceps. Resected andretrieved. - Internal hemorrhoids. Recommendation: - Repeat colonoscopy in 5-10 years for surveillance based on pathology results. us Mike Henley MD GI~PROCEDURE ORDERABLES Final Re sult * (ABNORMAL) Lipid panel with reflex to lipoprotein NMR (12/22/2023 7:29 AM EDT) Cholesterol Total 293(H) 100 - 199 mg/dL [facility] HDL Cholesterol 74 >39 mg/dL [facility] LDL/HDL Ratio 2.8 0.0 - 3.2 ratio [facility] Comment: ?LDL/HDL Ratio ?Men ??Women ?1/2 Avg.Risk ??1.0 ?1.5 ?Avg.Risk ??3.6 ?3.2 ? 2X Avg.Risk ??6.2 ?5.0 ? 3X Avg.Risk ??8.0 ?6.1 Non-HDL Cholesterol 219(H) 0 - 129 mg/dL [facility] Triglycerides 64 0 - 149 mg/dL [facility] LDL Chol Calc (NIH) 210(H) 0 - 99 mg/dL [facility] LDL Calc Comment Comment [facility] Comment: Consider evaluating for Familial Hypercholesterolemia(FH), if clinically indicated. Blood Venous blood specimen / Unknown 12/22/2023 7:29 AM EDT 12/22/2023 Narrative [facility] 1 - 12/23/2023 8:06 AM EDT Performed at: ??01 - [facility] [address] ??[id number] Guide Foreign Tour: Yoly Villeda MD, Phone: ??[phone] us Lety GOINS LAB BLOOD ORDERABLES Fi nal Result [facility] 1 from Last 3 Months or Most Recently Relevant to Health Maintenance [place] [address] [address] [place] [address]) [place] B[place] [phone] Advance Directives * Full Code - Confirmed (Latest Code Status on File) Date Activated Date Inactivated Comments 01/10/2024 7:50 AM 01/14/2024 3:13 AM This code status was ascertained in the following way: Code status discussion: discussion with patient To update the patient's code status, place a code status order. Do not modify or discontinue any currently active code status orders. Care Teams Fitter Helper Relationship Specialty Start Date End Date Lety You PA [address] [place] [address] PCP - General Internal Medicine 03/06/23
--- OUTSIDE RECORDS SUMMARY | 2024-08-20 12:34 | XMS_ITS | Clinical Summary ---
Author Organization [facility] ersity Address [address] [place] [address] Care Team Providers Care Truck Shop Supervisor Name Role Phone Jaret Lara DO Primary Care Provider Allergies No known active allergies Medications atenolol (TENORMIN) 25 MG tablet Take 25 mg by mouth daily Active levothyroxine (LEVOXYL) 125 MCG tablet Take 117 mcg by mouth daily Active hydroxychloroqu ine (PLAQUENIL) 200 MG tablet Take 200 mg by mouth Two Times Daily Active omeprazole (PRILOSEC) 20 MG capsule Take 20 mg by mouth daily Active cetirizine (ZYRTEC ALLERGY) 10 MG tablet Take 10 mg by mouth daily Active HYDROcodone-archie taminophen (LORTAB) 5-325 MG per tabletIndicatio ns:one or two times weekly Take 1 tablet by mouth every 8 (eight) hours as needed for Pain Active vitamin D (ERGOCALCIFEROL ) 54447 units capsule Take 50,000 Units by mouth every 7 (seven) days Active meloxicam (MOBIC) 7.5 MG tablet Take 15 mg by mouth daily Active melatonin 3 MG tablet Take 5 mg by mouth nightly Active Amitriptyline HCl 25 MG Oral Tablet (ELAVIL) 05/18/2019 Act whit hydroCHLOROthia zide 50 MG Oral Tablet (HYDRODIURIL) TK 1 T PO QD IN THE MORNING 05/18/2019 Active LORazepam 1 MG Oral Tablet (ATIVAN) Take 1 mg by mouth Two times daily as needed 04/15/2019 Active Zolpidem Tartrate 5 MG Oral Tablet (AMBIEN) Take 5 mg by mouth nightly as needed 05/14/2019 Active Active Problems Problem Noted Date Diagnosed Date 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 Vitamin D deficiency 09/10/2017 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 Never 06/09/2019 Average Number of Drinks Not on file 020 Frequency of Binge Drinking Not on file 12/2019 Depression - PHQ 9 Answer Date Recorded Last PHQ-9: [employer] Data 12 09/07/2017 Comments Unknown Sex and Gender Information Value Date Recorded Sex Assigned at Not on file Legal Sex Female 5:13 PM EST Gender Identity Not on file Sexual Orientation Not on file Last Filed Vital Signs Vital Sign Reading Time Taken Comments Blood Pressure 138/76 09/07/2017 3:02 PM EDT Pulse 72 09/07/2017 3:02 PM EDT Temperature - - Respiratory Rate 20 09/07/2017 3:02 PM EDT Oxygen Saturation - - Inhaled Oxygen Concentration - - Weight 98.4 kg (217 lb) 09/07/2017 3:02 PM EDT Height 166 cm (5' 5.35 ) 09/07/2017 3:02 PM EDT Body Mass Index 35.72 09/07/2017 3:02 PM EDT Plan of Treatment Not on file Care Teams Truck Shop Supervisor Relationship Specialty Start Date End Date Jaret Lara DO [address] [place] [phone] PCP - General Internal Medicine 09/04/17
--- OUTSIDE RECORDS SUMMARY | 2024-08-20 12:34 | XMS_ITS | Referral Summary ---
Author Organization [facility] ersity Address [address] [place] [address] Care Team Providers Care Executive Vp Name Role Phone Jaret Lara DO Primary [...] for Pain Active vitamin D (ERGOCALCIFEROL ) 57690 units capsule Take 50,000 Units by mouth [...] to Bishop's thyroiditis Abnormal weight gain 09/07/2017 Social History Tobacco Use Types Packs/Day Years [...] PHQ 9 Answer Date Recorded Last PHQ-9: Smart[employer] Element Data 12 09/07/2017 Comments Unknown Sex [...] of Treatment Not on file Care Teams Executive Vp Relationship Specialty Start Date End Date Jaret Lara DO [address] [place] [phone] PCP - General Internal Medicine 09/04/17
--- OUTSIDE RECORDS SUMMARY | 2024-08-20 12:34 | XMS_ITS ---
Author Organization [facility] Care Team Providers Care Coil Binder Name Role Phone Alex Biggs Unavailable Unavailable Leanna Pires Unavailable Unavailable Allergies and adverse reactions Code CodeSystem Substance Reaction Severity StartDate Concern Status Serotonin Reupta ke Inhibitors (SSRIs) Unknown 11/24/2019 active Cymbalta Unknown 11/24/2019 active Care Team Name Role Address Phone Organization Dates Alex Biggs PCP [address] [place], [address], [place] (Office): [facility] 11/24/2019 - 11/30/2019 Leanna Pires [address] [place], [address], [place] (Office): : [facility] 11/24/2019 - 11/30/2019 Mental Status Section Date Assessment Total Score Description 11/30/2019 BIMS 11 moderate cognit whit impairment CAM 0 No delirium ind icated PHQ-9 00 11/30/2019 BIMS 11 moderate cognit whit impairment CAM 0 No delirium ind icated PHQ-9 00 Problems Problem # Description Date of onset Resolved Date Code CodeSystem Concern Status 1 MUSCLE WEAKNESS (GENERALIZED) [address] active 2 TROCHANTERIC BURSITI S, LEFT HIP [address] active 3 AUTOIMMUNE THYROIDITIS 20709272 SNOMED CT active 4 BENIGN NEOPLASM OF CRANIAL NERVES 50622684 SNOMED CT active 5 BODY MASS INDEX [BMI ] 37.0-37.9, ADULT 541978890 SNOMED CT active 6 DYSPHAGIA, OROPHARYNGEAL PHASE 10060887 SNOMED CT active 7 DYSPHAGIA, UNSPECIFIED 33434747 SNOMED CT active 8 ENCOUNTER FOR OTHER SPECIFIED AFTERCARE 947488615 SNOMED CT active [address] active 10 GASTRO-ESOPHAGEAL REFLUX DISEASE WITHOUT ESOPHAGITIS 806484448 SNOMED CT active 11 MAJOR DEPRESSIVE DISORDER, SINGLE EPISODE, UNSPECIFIED 02979361 SNOMED CT active 12 MORBID (SEVERE) OBESITY DUE TO EXCESS CALORIES 930887580 SNOMED CT active 13 OTHER ABNORMALITIES OF GAIT AND MOBILITY 75250236 SNOMED CT active 14 OTHER HALF-WAY (CURRENT) DRUG THERAPY 535700372 SNOMED CT active 15 OTHER SPECIFIED HYPOTHYROIDISM 247012951 SNOMED CT active 16 OTHER SYMPTOMS AND SIGNS INVOLVING COGNITIVE FUNCTIONS AND AWARENESS 544338306 SNOMED CT active 17 POLYOSTEOARTHRITIS, UNSPECIFIED 39616494 SNOMED CT active 18 SJOGREN SYNDROME WIT H KERATOCONJUNCTIVITIS 72261556 SNOMED CT active 19 UNSPECIFIED ASTHMA, UNCOMPLICATED 761077179 SNOMED CT active 20 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 38141460681290308 SNOMED CT active 21 UNSTEADINESS ON FEET 466855001 SNOMED CT active 22 VITAMIN D DEFICIENCY , UNSPECIFIED 73769976 SNOMED CT active Reason for Referral No Reasons for Referral Entered Social History Social History Observation Description Start Date End Date Code Code System Current Smoking Status Tobacco smoking consumption unknown 676744264 SNOMED CT Sex Assigned At Female 1965 17207-6 [facility] Gender Identity Vital Signs Code Code System Vitals Name Values and Units Timing Information 58689-8 [facility] Pain Level Value=5.0 11/30/2019 9279-1 [facility] Respiratory Rate Value=18.0 Units=/m in 11/30/2019 8462-4 [facility] Blood Pressure-Diastolic Value=89 Un its=mmHg 11/30/2019 8480-6 [facility] Blood Pressure-Systolic Nksju=620 Un its=mmHg 11/30/2019 8310-5 [facility] Body Temperature Value=97.2 Units=?? F 11/30/2019 8867-4 [facility] Heart rate Value=65.0 Units=/min 88428-7 [facility] O2 % dC Oximetry Value=98.0 Units= % 11/30/2019 98447-8 [facility] Weight Nwili=318.0 Units=Lbs 8302-2 [facility] Height Value=65.0 Units=Inches 11/24/2019
--- OUTSIDE RECORDS SUMMARY | 2024-08-20 12:34 | XMS_ITS | Continuity of Care Document ---
Author Organization [facility] Address [address] [facility] [address] [place] [address] Phone [phone] Care Team Providers Care Plant Breeder Name Role Phone Krupa Pop NP Care Team Information Commercial Or Institutional Cleaner Unavailable Mike Henley M.D. Care Team Information Recei margarita Unavailable Lety You Primary Care Physician Unavailab le Allergies and adverse reactions Active Allergies Criticality Reaction Severity Comments Date Duloxetine Unable to assess criticality 04/03/2023 Serotonin Unable to assess criticality 04/03/2023 Benadryl Unable to assess criticality 01/28/2024 Inactive Allergies NKDA Unable to assess criticality 12/29/2015 Vital Signs Date Vital Result Comment 01/28/2024 2:38pm Body Temperature 97.3 F Height 65 inches 5'5 Weight 177.00 lb BP Systolic 155 mmHg BP Diastolic 87 mmHg Heart Rate 99 /min BMI (Body Mass Index) 29.5 kg/m2 10/15/2023 1:37pm Body Temperature 97.5 F Height 65 inches 5'5 Weight 184.00 lb BP Systolic 154 mmHg BP Diastolic 86 mmHg Heart Rate 92 /min BMI (Body Mass Index) 30.6 kg/m2 07/11/2023 8:56am Body Temperature 97.9 F Height 65 inches 5'5 Weight 200.50 lb BP Systolic 128 mmHg BP Diastolic 88 mmHg Heart Rate 85 /min BMI (Body Mass Index) 33.4 kg/m2 04/09/2023 1:55pm Body Temperature 97.3 F Height 64 inches 5'4 Weight 209.12 lb BP Systolic 149 mmHg BP Diastolic 94 mmHg Heart Rate 70 /min BMI (Body Mass Index) 35.9 kg/m2 12/29/2015 7:46am Body Temperature 98.0 F Height 64 inches 5'4 Weight 191.00 lb BP Systolic 147 mmHg BP Diastolic 96 mmHg Heart Rate 62 /min BMI (Body Mass Index) 32.8 kg/m2 Results Test Acquired Date Facility Test Result H/L Range Note Tissue exam 4 N2N/CCD Import Final Diagnosis See Note 1 Gross Description See Note 2 Thyroglobulin antibody 4 N2N/CCD Import Thyroglobulin Antibody <1.0 0.0 - 0.9 Iu/mL 3 Hemoglobin A1c 4 N2N/CCD Import Hemoglobin A1c 5.3 % 4.8 - 5.6 4 CBC auto differential 4 N2N/CCD Import WBC 5.1 3.4 - 10.8 x10E3/uL RBC 4.68 3.77 - 5.28 x10E6/uL Hemoglobin 13.9 g/dL 11.1 - 15.9 Hematocrit 42.9 % 34.0 - 46.6 MCV 92 fL 79 - 97 MCH 29.7 pg 26.6 - 33.0 MCHC 32.4 g/dL 31.5 - 35.7 RDW 13.8 % 11.7 - 15.4 Platelets 273 150 - 450 x10E3/uL Neutrophils 64 % Not Estab. Lymphocytes 24 % Not Estab. Monocytes 8 % Not Estab. Eosinophils 3 % Not Estab. Basophils 1 % Not Estab. Neutrophils Absolute 3.2 1.4 - 7.0 x10E3/uL Lymphocytes Absolute 1.2 0.7 - 3.1 x10E3/uL Monocytes Absolute 0.4 0.1 - 0.9 x10E3/uL Eosinophils Absolute 0.2 0.0 - 0.4 x10E3/uL Basophils Absolute 0.1 0.0 - 0.2 x10E3/uL Immature Granulocytes Relative 0 % Not Estab. Immature Grans (Abs) 0.0 0.0 - 0.1 x10E3/uL Vitamin D 25 hydroxy 4 N2N/CCD Import Vitamin D 25-Hydroxy Level 62.9 ng/mL 30.0 - 100.0 5 Sedimentation rate 4 N2N/CCD Import Sedimentation Rate Westergren 22 0 - 40 mm/hr C-reactive protein 4 N2N/CCD Import C-Reactive Protein, Quant 21 mg/L High 0 - 10 Microscopic examination result N2N/CCD Import WBC None seen 0 - 5 /hpf RBC None seen 0 - 2 /hpf Epithelial Cell s (non renal) None seen 0 - 10 /hpf Cast Urine None seen None seen /lpf Bacteria None seen None seen/Few Lipid panel with reflex to lipoprotein NMR N2N/CCD Import Cholesterol Total 293 mg/dL High 100 - 199 HDL Cholesterol 74 mg/dL >39 LDL/HDL Ratio 2.8 0.0 - 3.2 ratio 6 Non-HDL Cholesterol 219 mg/dL High 0 - 129 Triglycerides 64 mg/dL 0 - 149 LDL Chol Calc (Nih) 210 mg/dL High 0 - 99 LDL Calc Comment Comment 7 Insulin and c-peptide N2N/CCD Import Insulin 6.0 2.6 - 24.9 uIU/mL C-Peptide Serum 1.6 ng/mL 1.1 - 4.4 8 Urinalysis with microscopic N2N/CCD Import Specific [place] 1.009 1.005 - 1.030 pH 6.5 5.0 - 7.5 Urine-Color Yellow Yellow Appearance Clear Clear WBC Esterase Negative Negative Protein Negative Negative/ Trace Glucose Negative Negative Ketones Trace Abnormal Negative Occult Blood Negative Negative Bilirubin Negative Negative Urobilinogen,Se mi -Qn 0.2 mg/dL 0.2 - 1.0 Nitrite Urine Negative Negative Microscopic Examination Comment 9 Microscopic Examination See below: 10 Thyroid peroxidase antibody N2N/CCD Import Thyroid Peroxidase (Tpo) Ab 28 0 - 34 Iu/mL Triiodothyronine free N2N/CCD Import Triiodothyronine (T3), Free 1.7 pg/mL Low 2.0 - 4.4 Thyroid stimulating hormone N2N/CCD Import TSH 2.280 0.450 - 4.500 uIU/mL Thyroxine free N2N/CCD Import T4 (Thyroxine) Free (Direct) 1.56 ng/dL 0.82 - 1.77 Vitamin B12 N2N/CCD Import Vitamin B12 974 pg/mL 232 - 1,245 Comprehensive metabolic panel N2N/CCD Import Glucose 87 mg/dL 70 - 99 Blood Urea Nitrogen (BUN) 12 mg/dL 6 - 24 Creatinine 0.76 mg/dL 0.57 - 1.00 eGFR 91 mL/min/1. 73 >59 BUN/Creatinine Ratio 16 9 - 23 Sodium 135 mmol/L 134 - 144 Potassium 4.7 mmol/L 3.5 - 5.2 Chloride 96 mmol/L 96 - 106 Carbon Dioxide 22 mmol/L 20 - 29 Calcium 9.2 mg/dL 8.7 - 10.2 Protein Total 7.2 g/dL 6.0 - 8.5 Albumin 4.4 g/dL 3.8 - 4.9 Globulin Total 2.8 g/dL 1.5 - 4. 5 Bilirubin Total 0.4 mg/dL 0.0 - 1.2 Alkaline Phosphatase 76 44 - 121 Iu/L Aspartate aminotransferase? ?(Ast) 27 0 - 40 Iu/L Alanine Aminotransferase (Alt) 24 0 - 32 Iu/L Urinalysis with microscopic 4 N2N/CCD Import Color, Urine Light Yellow Light Yellow, Yellow Clarity, Urine Clear Clear Specific Gravit y, Urine 1.015 1.005 - 1.030 pH, Urine 6.0 pH 5.0 - 7.0 Leukocytes, Urine Trace Abnormal Negat whit WBCs/mcL Nitrite, Urine Negative Negative Protein, Urine Negative Negative mg/dL Glucose, Urine Negative Negative mg/dL Ketones, Urine 2+ Abnormal Negative mg/dL Bilirubin, Urine Negative Negati ve mg/dL Blood, Urine Trace Abnormal Negative mg/dL RBC, Urine 3-5 Abnormal None, 0-2 /HPF WBC, Urine 3-5 Abnormal None, 0-2 /HPF Bacteria, Urine 1+ Abnormal None /H PF Squamous Epithelial, Urine Few None, Rare, Few, Mod, Ma Mucus, Urine 2+ Abnormal None, 1+, 2+, 3+ /HPF Basic Metabolic Panel 4 [facility] [place] [address] [phone] Sodium 137 mmol/L (136-145) Potassium 4.6 mmol/L (3.5-5.1) Chloride 102 mmol/L (98-107) Co2 30 mmol/L (20-31) Anion Gap 5 mmol/L Low (7-16) Urea Nitrogen 13 mg/dL (9-23) Creatinine 0.92 mg/dL (0.55-1.0 2) BUN/Creat Ratio 14.1 RATIO (10.0-20. 0) Glucose 83 mg/dL (70-99) Calcium 8.9 mg/dL (8.3-10.6 ) GFR >60 ml/min/1. 73m2 (>59) 11 1 A. Duodenum, 2nd and 3rd portion, biopsy:Normal duodenal mucosa.Negative for Celiac sprue.B. Stomach, antrum, biopsy:Normal gastric mucosa.No gastritis and no Helicobacter pylori are seen.C. Esophagus, biopsy:Features suggestive of reflux esophagitis. Note: The squamous mucosa is thickened and congested, but not inflamed.D. Ascending colon, polyp, biopsy:Tubular adenoma. Icd-R10.13, R63.4, K21.00, D12.2, CPT-90082 for A, B, C, D. 2 A. Small Intestine, Duodenum, 2nd and 3rd portion duodenum bxs r/o celiac on gel foam:Received in formalin a Gelfoam pad labeled second and third portion duodenum biopsies are 3 hauser tissues ranging from 0.4 to 0.5 cm. Entirely submitted as A1.B. Stomach, Gastric antrum bxs r/o gastritis:Received in formalin labeled gastric antrum biopsies is a 0.5 cm hauser tissue. Entirely submitted as B1.C. Esophagus, Esophageal bxs r/o reflux:Received in formalin labeled esophageal biopsy are 2 white tissues measuring 0.4 and 0.5 cm. Entirely submitted as C1.D. Large Intestine, Right/Ascending Colon, Ascending colon polyp:Received in formalin at labeled ascending colon polyp are 2 hauser tissues measuring 0.3 and 0.4 cm. Entirely submitted as D1. 3 Thyroglobulin Antibo dy measured by Letitia Maria Victoria Methodology It should be noted that the presence of thyroglobulin antibodies may not be pathogenic nor diagnostic, especially at very low levels. The assay multiple drill operator has found that four percent of individuals without evidence of thyroid disease or autoimmunity will have positive TgAb levels up to 4 IU/mL. 4 Prediabetes: 5.7 - 6 .4 Diabetes: >6.4 Glycemic control for adults with diabetes: <7.0 5 Vitamin D deficiency has been defined by the [place] of [employer] and an Endocrine Society practice guideline as a level of serum 25-OH vitamin D less than 20 ng/mL (1,2). The Endocrine Society went on to further define vitamin D insufficiency as a level between 21 and 29 ng/mL (2). 1. IOM ([place] of Medicine). 2010. Dietary reference intakes for calcium and D. [place]: The National Academies Press. 2. Jennifer SHERMAN, Whitney POWELL, Walter GAYLE, et al. Evaluation, treatment, and prevention of vitamin D deficiency: an Endocrine Society clinical practice guideline. JCEM. 2010; 96(7):1911-30. 6 LDL/HDL Ratio Men Wo men 1/2 Avg.Risk 1.0 1.5 Avg.Risk 3.6 3.2 2X Avg.Risk 6.2 5.0 3X Avg.Risk 8.0 6.1 7 Consider evaluating for Familial Hypercholesterolemia(FH), if clinically indicated. 8 C-Peptide reference interval is for fasting patients. 9 Microscopic follows if indicated. 10 Microscopic was maricarmen cated and was performed. 11 NORMAL KIDNEY FUNCTION OR MILD DISEASE - GFR >OR= 60 CHRONIC KIDNEY DISEASE - GFR 15 - 59 RENAL FAILURE - GFR <15 Estimated GFR calculation based on the 2020 CKD-EPI calculation, which assumes a steady state for creatinine. Est. GFR should not be used for medication dosing.
--- OUTSIDE RECORDS SUMMARY | 2024-08-20 12:34 | XMS_ITS | Continuity of Care Document ---
Author Organization [facility] davi Alvarez Address [address] [place] [phone] Phone [phone] Care Team Providers Care Fsr Name Role Phone MARGARETTE HOWE M.D. Care Team Information Recei margarita Unavailable
== END 2024-08-20 12:19 | disposition home or self-care (01) ==
LOC: HO.HMCSH 11:17
PROVIDERS: PCP Internal Medicine; Visit Provider Physician Assistant Medical
DX: Z76.89 Persons encountering health services in other specified circumstances (principal); M08.00 Unspecified juvenile rheumatoid arthritis of unspecified site; E06.3 Autoimmune thyroiditis; R00.0 Tachycardia, unspecified; M35.00 Sjogren syndrome, unspecified; E03.9 Hypothyroidism, unspecified; D33.3 Benign neoplasm of cranial nerves; F41.9 Anxiety disorder, unspecified; M79.7 Fibromyalgia; K74.3 Primary biliary cirrhosis; L94.0 Localized scleroderma [morphea]; I83.90 Asymptomatic varicose veins of unspecified lower extremity; E78.00 Pure hypercholesterolemia, unspecified; E66.3 Overweight; Z68.28 Body mass index [BMI] 28.0-28.9, adult

== ENCOUNTER → 2024-08-20 11:17 | Outpatient (BNVA) | payer BC, SELFPAY | PROVIDERS: PCP Internal Medicine; Visit Provider Physician Assistant Medical | DX: E06.3 Autoimmune thyroiditis (principal); M08.00 Unspecified juvenile rheumatoid arthritis of unspecified site; D33.3 Benign neoplasm of cranial nerves; R00.0 Tachycardia, unspecified; F41.9 Anxiety disorder, unspecified; M35.00 Sjogren syndrome, unspecified; E78.00 Pure hypercholesterolemia, unspecified; M79.7 Fibromyalgia; K74.3 Primary biliary cirrhosis; E66.3 Overweight; Z68.28 Body mass index [BMI] 28.0-28.9, adult; Z71.3 Dietary counseling and surveillance; Z76.89 Persons encountering health services in other specified circumstances | CPT/HCPCS: 96127; 99202 ==